=== PATIENT | male | born 1950 | race American Indian/Alaskan Native ===

== ENCOUNTER 2018-05-16 14:15 | Emergency (ER) | payer OTHER, MEDICARE ==
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
[2018-05-16] MEDS ORDERED: IBUPROFEN PO ONE (15:47)
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
[2018-05-16 17:50] VITALS: BP 124/73
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
== END 2018-05-16 17:50 | disposition home or self-care (01) ==
LOC: ED 14:15
DX: S16.1XXA Strain of muscle, fascia and tendon at neck level, initial encounter (principal); V87.7XXA Person injured in collision between other specified motor vehicles (traffic), initial encounter; Y93.89 Activity, other specified; Y92.488 Other paved roadways as the place of occurrence of the external cause; Y99.8 Other external cause status
CPT/HCPCS: 72040; 72070; 72100; 99283